=== PATIENT | male | born 1955 | race Asian ===

== ENCOUNTER 2018-11-18 00:46 | Inpatient (IN) | payer BC, MEDICAID ==
[~2018-11-18] VITALS: Ht 170.2 cm; Wt 73.5 kg
[2018-11-18 00:46] VITALS: BP_SYST 125
--- NOTE | 2018-11-18 00:47 | NUR ---
Placed in room 3 . Placed on desk monitor, blood pressure machine and pulse oximeter. To gown for exam. Side rails up.
--- NOTE | 2018-11-18 00:50 | NUR ---
ER Dr. Bundy at bedside examining patient.
--- NOTE | 2018-11-18 00:51 | NUR ---
Pt came to the ED for L sided chest pain described as a "heavy" for 3 days. Reports SOB and some nausea. Denies vomiting and diarrhea. No other complaints/injuries noted. Will cont. to monitor.
[2018-11-18] MEDS ORDERED: ASPIRIN 81 MG TAB.CHEW PO ONE (01:00)
[2018-11-18] MEDS ORDERED: MORPHINE 2 MG/ML INJ. SYRINGE IVP ONE (01:00)
[2018-11-18] MEDS ORDERED: ONDANSETRON HCL 4 MG/2 ML VIAL IVP ONE (01:00)
--- NOTE | 2018-11-18 01:00 | NUR ---
Medication reconciliation completed with information provided by patients . Any prior medication reconciliation on file was reviewed and corrected.
[2018-11-18 01:34] LABS: BASOPHILS % (AUTO) 0.4 % (0.0-2.0); EOSINOPHILS # (AUTO) 0.2 K/uL (0.0-0.4); EOSINOPHILS % (AUTO) 1.9 % (0.0-4.0); HEMATOCRIT 42.2 % (36-54); HEMOGLOBIN 14.4 g/dL (14.0-18.0); LYMPHOCYTES # (AUTO) 4.3 K/uL (1.0-5.5); LYMPHOCYTES % (AUTO) 44.8 % (20.5-51.5); MEAN CORPUSCULAR HEMOGLOBIN 31 pg (27-31); MEAN CORPUSCULAR HGB CONC 34 % (32-36); MEAN CORPUSCULAR VOLUME 90 fL (79.0-98.0); MONOCYTES # (AUTO) 0.7 K/uL (0.0-1.0); MONOCYTES % (AUTO) 7.5 % (1.7-9.3); NEUTROPHILS # (AUTO) 4.3 K/uL (1.8-7.7); NEUTROPHILS % (AUTO) 45.4 % (40.0-70.0); PLATELET COUNT (AUTO) 271 K/uL (130-430); RED BLOOD CELL COUNT(AUTO) 4.71 MIL/uL (4.2-6.2); RED CELL DISTRIBUTION WIDTH 13.4 % (9.0-15.0); WHITE BLOOD COUNT (AUTO) 9.5 K/uL (4.8-10.8)
[2018-11-18 01:48] LABS: CALCIUM 8.5 mg/dL (8.4-11.0); CREATININE 1.11 mg/dL (0.55-1.30); POTASSIUM 3.6 mmol/L (3.5-5.1)
[2018-11-18 01:50] LABS: INR 0.9 (0.80-1.20); PROTHROMBIN TIME 9.4 SECS (9.5-12.5)
[2018-11-18 01:53] LABS: ALBUMIN 3.3 g/dL (3.4-4.8); TOTAL BILIRUBIN 0.3 mg/dL (0.0-1.0)
[2018-11-18] MEDS ORDERED: LISI-600 PO (03:16)
--- NOTE | 2018-11-18 03:22 | NUR ---
Dr. Watson from [facility] reviewed EKG and spoke to Dr. Bundy.
--- NOTE | 2018-11-18 04:00 | NUR ---
Pt resting comfortably in bed, no signs of acute distress. Will cont. to monitor.
--- NOTE | 2018-11-18 04:50 | NUR ---
Patient will be admitted to care of Dr. Pinon. Admitted to Tele unit. Pt currently on hold due to no staffing. Belongings list completed. Summary report printed. Report will be given at bedside.
[2018-11-18] MEDS ORDERED: ENOXAPARIN SODIUM 60 MG/0.6 ML SYRINGE SUBCUT ONE (05:00)
--- NOTE | 2018-11-18 05:00 | NUR ---
Pt resting comfortably in bed, no signs of acute distress. Will cont. to monitor.
--- NOTE | 2018-11-18 05:10 | NUR ---
Called [facility] for bed, CN made aware. Currently holding pt.
--- NOTE | 2018-11-18 07:26 | NUR ---
CONSULTATION PAGED/CALLED Reason for Consultation: [] CHEST PAIN Person Who was Notified: [] FAUSTINO Consulting Physician: [] DR THOMAS Director Of Cardiology Specialty: [] CARDIO Ordering Physician: [] DR Ang ALBERTS
--- NOTE | 2018-11-18 07:27 | NUR ---
Transfer to Tele via ACLS protocol. Licensed nurse present. IV present no signs or symptoms of infiltration.
--- NOTE | 2018-11-18 07:30 | NUR ---
initial notes rec patient from er with a dx of chest pain. awake alert accompanied by his . ivl on the l ac inatct. no infiltration noted. denies chest pain at this time. resp easy and unlabored. no sob noted. bed to the lowest position and side rails up and locked. call light within reached and knows when to call for assistance. oriented with pt's surroundings.ambulated to the br and with a steady gait.
[2018-11-18 07:57] VITALS: BP_SYST 99
[2018-11-18] MEDS ORDERED: FLU VACC TS2019(65UP)/MF59C/PF 45 MCG/0.5 ML SYRINGE I.M. PRN (08:15)
[2018-11-18] MEDS ORDERED: FLU VACC QS2019-20 36MOS UP/PF 60 MCG/0.5 ML SYRINGE I.M. PRN (08:15)
--- NOTE | 2018-11-18 09:59 | NUR ---
ANOTHER CALL WAS MADE TO THE TICKET COUNTER MANAGER MBA, DR THOMAS, RE: HIGHER TROPONIN LEVEL THAN THE FIRST. SPOKE TO FAUSTINO.
--- NOTE | 2018-11-18 10:30 | NUR ---
rounds dr zheng at bedside to see patient.
[2018-11-18] MEDS ORDERED: HEPARIN SODIUM,PORCINE 5000 UNITS/ML VIAL IV ONE (10:45)
--- NOTE | 2018-11-18 11:38 | NUR ---
DC PLANNING RECEIVED CALL FROM NURSING PATIENT TO TRANSFER TO [facility] FOR HIGHER LEVEL OF CARE TRANSFER HEART CATH AT12:30. TROPONIN AT 01:03 WAS 0.794 2ND AT 08:45 WAS 3.643. PER [employer] PR[employer]ER DR MARTHA BAL TRANSFER FOR IMMEDIATE HEART CATH. CALLED [facility] AT 11:30AM AT [phone] SPKE WITH JEFF ADVISED SHE WILL GET A BED READY. LET JEFF KNOW PLAN WAS FOR HEART CATH AT 12:30. SHE ADVISED TO CONTACT ADMITTING FOR INSURANCE INFORMATION. CM WAS TRANSFERRED TO YOLANDA IN ADMITTING AT 11:20 PHONE # [phone] ADVISED OVER THE PHONE INSURANCE IS CLEAR [employer] REQUESTED FAXED FACESHEET TO [phone] FAXED FACESHEET CONFIRMED YOLANDA FROM ADMITTING WILL NOTIFY ONLINE MARKETING STRATEGIST JEFF. Addendum: 11/18/18 at 1152 by Melinda Chamberlain RN [facility] ADVISED BED WILL BE WAITING BUT NO ROOM NUMBER ADVISED NURSING IS SAYING STRIGHT TO PRICING CONSULTANT AT 12:30 SHE PLACED ME ON HOLD CONFIRMED STRIGHT TO PRICING CONSULTANT NUMBER FOR REPORT IS [phone] NOTIFIED ARMAAN SWARTZ. CM ARRANGING TRANSPORTATION. AWAITING AMBULANCE TIME WILL UPDATE NURSING ALL. Addendum: 11/18/18 at 1200 by Melinda Chamberlain RN CALLED [facility] AT [phone] EN ROUTE ETA 12:20 NOTIFIED NURSING
[2018-11-18 11:42] VITALS: BP_SYST 99
[2018-11-18] MEDS ORDERED: HEPARIN SODIUM,PORCINE 5000 UNITS/ML VIAL ONE (11:43)
[2018-11-18 12:00] VITALS: BP_SYST 107
--- NOTE | 2018-11-18 12:18 | NUR ---
rounds report given to javed rn at [facility] . pt and aware re the cardiac cath to be done at [facility]. ambulance on the way to get patient and will be transported to [facility]. echo cardio being done at bedside at this time.
--- NOTE | 2018-11-18 12:50 | NUR ---
closing notes echo cardio was done and pt was transferred to [facility]. no sob noted. id band was removed and replaced with a paper one. stable and needs attended.
== END 2018-11-18 12:50 | disposition short-term general hospital (02) | DRG 282 ==
LOC: SED 00:46 → STU 04:49
PROVIDERS: ADMIT Internal Medicine; ATTEND Internal Medicine
DX: I21.4 Non-ST elevation (NSTEMI) myocardial infarction (principal); I10 Essential (primary) hypertension; Z82.49 Family history of ischemic heart disease and other diseases of the circulatory system; Z82.3 Family history of stroke
CPT/HCPCS: 36415; 71045; 80053; 82550-TC; 83880; 84484; 85025; 85379; 85610-TC; 85730-TC; 93005; 93306; 96374; 96375; 99285; G0378; J1644; J1650; J2270; J2405